=== PATIENT | male | born 1980 | race Caucasian/White ===

== ENCOUNTER 2017-05-04 11:06 | Emergency (ER) | payer OTHER ==
[~2017-05-04] VITALS: Ht 193 cm; Wt 105.0 kg
[~2017-05-04 11:06] MED LIST: CEPH500C3 PO; SULF1TAB47 PO; Z.0.NO CURRENT MEDS
[2017-05-04 11:09] VITALS: BP 126/76; PULSE 61; RESP 13; TEMP 98.4; O2SAT 100
[2017-05-04] MEDS ORDERED: CARD120T4 PO (11:49)
[2017-05-04 11:52] VITALS: BP 116/68; PULSE 62; RESP 18; O2SAT 99
--- NOTE | 2017-05-04 11:58 | PD ---
HPI Chief Complaint: Psychiatric Symptoms Time Seen by Provider: 11:42 Travel History International Travel<30 days: No Contact w/Intl Traveler<30days: No Traveled to known affect area: No History of Present Illness HPI 36yo M with PMH of afib on diltiazem was sent here from [facility] for medical clearance and psych evaluation. Pt was Mendiola Acted yesterday for depression and suicidal ideation and was brought to [facility] and stayed there over night. They said they cant help him because he has a cardiac condition which is rate controlled afib. Denies any fever, chest pain, sob, n/v , abdominal pain, focal weakness or numbness, trauma, IVDA, alcohol use. PFSH Past Medical History Autoimmune Disease: No Blood Disorders: No Bipolar Disorder: Yes Anxiety: Yes Depression: Yes Cancer: No Cardiovascular Problems: Yes (CHRONIC AFIB) High Cholesterol: No Chest Pain: No Diminished Hearing: No Endocrine: No Genitourinary: No Immune Disorder: No Musculoskeletal: No Neurologic: No Psychiatric: Yes Reproductive: No Respiratory: No Immunizations Current: Yes Tetanus Vaccination: < 5 Years Influenza Vaccination: No Past Surgical History Abdominal Surgery: No AICD: No Arteriovenous Shunt: No Cardiac Surgery: No Ear Surgery: No Endocrine Surgery: No Eye Surgery: No Genitourinary Surgery: No Gynecologic Surgery: No Insulin Pump: No Joint Replacement: No Oral Surgery: No Pacemaker: No Thoracic Surgery: No Social History Alcohol Use: Yes Tobacco Use: Yes (1PPD) Substance Use: Yes (MARIJUANA LAST USE A MONTH AGO , COCCAINE USE SOMETIMES ) Allergies-Medications (Allergen,Severity, Reaction): Coded Allergies: lithium (Unverified Allergy, Severe, IRREGULAR HEARTBEAT, 05/04/17) haloperidol (Unverified Allergy, Intermediate, TONGUE SPASM, 05/04/17) vancomycin (Unverified Allergy, Mild, SWOLLEN LIPS/MOUTH, 05/04/17) bupropion (Verified Allergy, Unknown, SEIZURE, 05/04/17) Reported Meds & Prescriptions Reported Meds & Active Scripts Active Reported Cardizem (Diltiazem HCl) 120 Mg Tab 120 Mg PO BID Review of Systems Except as stated in HPI: all other systems reviewed are Neg Physical Exam Narrative GENERAL: 36yo M not in distress. SKIN: Focused skin assessment warm/dry. HEAD: Atraumatic. Normocephalic. EYES: Pupils equal and round at 3mm bilaterally. EOMI. ENT: No nasal bleeding or discharge. Mucous membranes pink and moist. NECK: Trachea midline. No JVD. CARDIOVASCULAR: Regular rate and rhythm. No murmur appreciated. RESPIRATORY: No accessory muscle use. Clear to auscultation. Breath sounds equal bilaterally. GASTROINTESTINAL: Abdomen soft, non-tender, nondistended. MUSCULOSKELETAL: No obvious deformities. No clubbing. No cyanosis. No edema. NEUROLOGICAL: Awake and alert. No obvious cranial nerve deficits. Motor grossly within normal limits. Normal speech. Data Data Last Documented VS Vital Signs Date Time Temp Pulse Resp B/P (MAP) Pulse Ox O2 Delivery O2 Flow Rate FiO2 05/04/17 12:52 60 20 116/68 (84) 99 Room Air 05/04/17 11:09 98.4 Orders Orders Complete Blood Count With Diff (05/04/17 11:50) Basic Metabolic Panel (Bmp) (05/04/17 11:50) Electrocardiogram (05/04/17 11:50) Psych Screen (05/04/17 11:50) Drug Screen, Random Urine (05/04/17 11:50) Alcohol (Ethanol) (05/04/17 11:50) Salicylates (Aspirin) (05/04/17 11:50) Tylenol (Acetaminophen) (05/04/17 11:50) Diet Regular Basic (05/04/17 Lunch) Labs Laboratory Tests Test 05/04/17 12:05 05/04/17 12:25 White Blood Count 8.2 TH/MM3 Red Blood Count 4.96 MIL/MM3 Hemoglobin 15.6 GM/DL Hematocrit 46.1 % Mean Corpuscular Volume 93.0 FL Mean Corpuscular Hemoglobin 31.4 PG Mean Corpuscular Hemoglobin Concent 33.8 % Red Cell Distribution Width 14.4 % Platelet Count 281 TH/MM3 Mean Platelet Volume 8.9 FL Neutrophils (%) (Auto) 58.8 % Lymphocytes (%) (Auto) 26.3 % Monocytes (%) (Auto) 11.1 % Eosinophils (%) (Auto) 3.0 % Basophils (%) (Auto) 0.8 % Neutrophils # (Auto) 4.8 TH/MM3 Lymphocytes # (Auto) 2.2 TH/MM3 Monocytes # (Auto) 0.9 TH/MM3 Eosinophils # (Auto) 0.2 TH/MM3 Basophils # (Auto) 0.1 TH/MM3 CBC Comment DIFF FINAL Differential Comment Blood Urea Nitrogen 18 MG/DL Creatinine 1.08 MG/DL Random Glucose 90 MG/DL Calcium Level 8.4 MG/DL Sodium Level 137 MEQ/L Potassium Level 4.3 MEQ/L Chloride Level 107 MEQ/L Carbon Dioxide Level 27.4 MEQ/L Anion Gap 3 MEQ/L Estimat Glomerular Filtration Rate 77 ML/MIN Salicylates Level 3.3 MG/DL Acetaminophen Level LESS THAN 2.0 MCG/ML Ethyl Alcohol Level LESS THAN 3 MG/DL Urine Opiates Screen NEG Urine Barbiturates Screen NEG Urine Amphetamines Screen NEG Urine Benzodiazepines Screen POS Urine Cocaine Screen POS Urine Cannabinoids Screen NEG MDM Medical Decision Making Medical Screen Exam Complete: Yes Emergency Medical Condition: Yes Interpretation(s) EKG: NSR 62bpm. Normal axis. No ST segment elevation or depression. Differential Diagnosis Depression vs. bipolar disorder Narrative Course 36yo M under Mendiola Act for suicidal ideations. Pt has history of afib and on diltiazem and heart rate is controlled in the 60s. Has no medical complaints. EKG reviewed and pt is in sinus rhythm. Labs reviewed, no leukocytosis. BMP unremarkable. Alcohol, salicylate and acetaminophen low. Utox positive for benzodiazepine and cocaine. Pt is medically clear for psych evaluation. Diagnosis Primary Impression: Depression Qualified Codes: F32.9 - Major depressive disorder, single episode, unspecified Diana Styles DO May 04, 2017 11:58
[2017-05-04 12:18] LABS: AUTOMATED NEUTROPHIL # 4.8 TH/MM3 (1.8-7.7); BASOPHIL # 0.1 TH/MM3 (0-0.2); BASOPHIL % 0.8 % (0.0-2.0); EOSINOPHIL # 0.2 TH/MM3 (0-0.4); HEMATOCRIT 46.1 % (39.0-51.0); HEMO FLAGS DIFF FINAL; LYMPH % 26.3 % (9.0-44.0); LYMPHOCYTE # 2.2 TH/MM3 (1.0-4.8); MEAN CORPUSCULAR HEMOGLOBIN 31.4 PG (27.0-34.0); MEAN CORPUSCULAR HGB CONC 33.8 % (32.0-36.0); MONO % 11.1 % (0.0-8.0); NEUT % 58.8 % (16.0-70.0); PLATELET COUNT 281 TH/MM3 (150-450); RED BLOOD COUNT 4.96 MIL/MM3 (4.50-5.90); RED CELL DISTRIBUTION WIDTH 14.4 % (11.6-17.2); WHITE BLOOD COUNT 8.2 TH/MM3 (4.0-11.0)
[2017-05-04 12:41] LABS: ANION GAP 3 MEQ/L (5-15); BICARBONATE 27.4 MEQ/L (21.0-32.0); BLOOD UREA NITROGEN 18 MG/DL (7-18); CHLORIDE 107 MEQ/L (98-107); GLOMERULAR FILTRATION RATE 77 ML/MIN (>89); POTASSIUM 4.3 MEQ/L (3.5-5.1); SODIUM (NA) 137 MEQ/L (136-145)
[2017-05-04 12:46] LABS: ALCOHOL LESS THAN 3 MG/DL (0-5)
[2017-05-04 12:47] LABS: ACETAMINOPHEN LESS THAN 2.0 MCG/ML (10.0-30.0)
[2017-05-04 12:52] VITALS: BP 116/68; PULSE 60; RESP 20; O2SAT 99
--- NOTE | 2017-05-04 18:11 | PD ---
History of Present Illness Chief Complaint: Psychiatric Symptoms Time Seen by Provider: 17:55 Travel History International Travel<30 Days: No Contact w/Intl Traveler<30days: No Known affected area: No Legal Status Legal Status: Marlena Act Mendiola Act Signed By: Delilah Zamora History of Present Illness: History of Present Illness HPI 36 year old male with PMH of afib, history of schizoaffective disorder was sent here from [facility] for medical clearance and psych evaluation. Pt was Marlena Acted yesterday for depression and suicidal ideation and was brought to [facility] and stayed there over night. They said they cant help him because he has a cardiac condition which is rate controlled afib.EMR is reviewed. Has had a couple of visits to the emergency department for psychiatric evaluation the last one being in December 2012 in which she presented with depression with suicidal ideation and contracts of being homeless. Patient has been monitored in main ED and he has presented no behavioral concerns and no suicidality. He is alert, oriented, engaging and cooperative male, at times he does have inappropriate smiling but he is cognitively intact. There is no hallucinations , no delusions, no paranoia. He tells me that he has been out of Klonopin medication that he has taken for several years for 3 days. He also states that he went to [facility] outpatient clinic and was told that they could not prescribe that medication for him. He has not made an appointment with an outpatient psychiatrist because he is aware that he had smoked marijuana and was going to be drug tested at that appointment. Patient states" I figured if I said I was suicidal I could get Klonopin here in the emergency department.. I am not thinking about hurting myself I just want to go home and I will follow up with outpatient psychiatrist." Patient is not requesting inpatient admission and at this time does not meet criteria for inpatient psychiatric hospitalization. PFSH Past Medical History Autoimmune Disease: No Blood Disorders: No Bipolar Disorder: Yes Anxiety: Yes Depression: Yes Cancer: No Cardiovascular Problems: Yes (CHRONIC AFIB) High Cholesterol: No Chest Pain: No Diminished Hearing: No Endocrine: No Genitourinary: No Immune Disorder: No Musculoskeletal: No Neurologic: No Psychiatric: Yes Reproductive: No Respiratory: No Immunizations Current: Yes Tetanus Vaccination: < 5 Years Influenza Vaccination: No Past Surgical History Abdominal Surgery: No AICD: No Arteriovenous Shunt: No Cardiac Surgery: No Ear Surgery: No Endocrine Surgery: No Eye Surgery: No Genitourinary Surgery: No Gynecologic Surgery: No Insulin Pump: No Joint Replacement: No Oral Surgery: No Pacemaker: No Thoracic Surgery: No Psychiatric History Psychiatric History Hx Psychiatric Treatment: STATED HX OF BIPOLAR [facility] after being incarcerated. History of Inpatient Treatment: Yes Guns or firearms in home: No Social History Lives with mother, sister and nephew. On disability Hx Alcohol Use: Yes Hx Tobacco Use: Yes (1PPD) Hx Substance Use: Yes (MARIJUANA LAST USE A MONTH AGO , COCCAINE USE SOMETIMES ) Substance Use Type: Marijuana, Nicotine/Cigarettes Hx of Substance Use Treatment: Yes Family Psychiatric History Negative Allergies-Medications (Allergen,Severity, Reaction): Coded Allergies: lithium (Unverified Allergy, Severe, IRREGULAR HEARTBEAT, 05/04/17) haloperidol (Unverified Allergy, Intermediate, TONGUE SPASM, 05/04/17) vancomycin (Unverified Allergy, Mild, SWOLLEN LIPS/MOUTH, 05/04/17) bupropion (Verified Allergy, Unknown, SEIZURE, 05/04/17) Reported Meds & Prescriptions Reported Meds & Active Scripts Active Reported Cardizem (Diltiazem HCl) 120 Mg Tab 120 Mg PO BID Review of Systems Except as stated in HPI: all other systems reviewed are Neg Mental Status Examination Appearance: Appropriate Consciousness: Alert Orientation: x4 Motor Activity: Normal gait Speech: Unremarkable Language: Adequate Fund of Knowledge: Adequate Attention and Concentration: Adequate Memory: Unremarkable Mood: Appropriate Affect: Appropriate Thought Process & Associations: Intact Thought Content: Appropriate Hallucination Type: None Delusion Type: None Suicidal Ideation: No Suicidal Plan: No Suicidal Intention: No Homicidal Ideation: No Homicidal Plan: No Homicidal Intention: No Insight: Fair Judgment: Impulsive MDM Medical Decision Making Medical Record Reviewed: Yes Assessment/Plan 36-year-old male with history of schizoaffective disorder, previously treated with Klonopin, presents to the emergency department under a Mendiola act for alleged suicidal ideation. Patient states that he has been off Klonopin for 3 days and he figured that if he called the police and told them he was suicidal he would be brought to the emergency department and he would get a prescription for the Klonopin. Patient at this time is denying any suicidal or homicidal ideation and is requesting to be discharged. He has an appointment scheduled with outside psychiatrist Dr.Samario Vásquez. Patient states that he will go to that appointment to get his prescription for Klonopin. is cognitively intact. At this time does not be Mendiola act criteria. The Mendiola act will be lifted. Psychiatrically clear for discharge from ED. Orders Orders Complete Blood Count With Diff (05/04/17 11:50) Basic Metabolic Panel (Bmp) (05/04/17 11:50) Electrocardiogram (05/04/17 11:50) Psych Screen (05/04/17 11:50) Drug Screen, Random Urine (05/04/17 11:50) Alcohol (Ethanol) (05/04/17 11:50) Salicylates (Aspirin) (05/04/17 11:50) Tylenol (Acetaminophen) (05/04/17 11:50) Diet Regular Basic (05/04/17 Lunch) Diet Regular Basic (05/04/17 Dinner) Results Vital Signs Date Time Temp Pulse Resp B/P (MAP) Pulse Ox O2 Delivery O2 Flow Rate FiO2 05/04/17 12:52 60 20 116/68 (84) 99 Room Air 05/04/17 11:52 62 18 116/68 (84) 99 Room Air 05/04/17 11:09 98.4 61 13 126/76 (93) 100 Laboratory Tests Test 05/04/17 12:05 05/04/17 12:25 White Blood Count 8.2 Red Blood Count 4.96 Hemoglobin 15.6 Hematocrit 46.1 Mean Corpuscular Volume 93.0 Mean Corpuscular Hemoglobin 31.4 Mean Corpuscular Hemoglobin Concent 33.8 Red Cell Distribution Width 14.4 Platelet Count 281 Mean Platelet Volume 8.9 Neutrophils (%) (Auto) 58.8 Lymphocytes (%) (Auto) 26.3 Monocytes (%) (Auto) 11.1 Eosinophils (%) (Auto) 3.0 Basophils (%) (Auto) 0.8 Neutrophils # (Auto) 4.8 Lymphocytes # (Auto) 2.2 Monocytes # (Auto) 0.9 Eosinophils # (Auto) 0.2 Basophils # (Auto) 0.1 CBC Comment DIFF FINAL Differential Comment Blood Urea Nitrogen 18 Creatinine 1.08 Random Glucose 90 Calcium Level 8.4 Sodium Level 137 Potassium Level 4.3 Chloride Level 107 Carbon Dioxide Level 27.4 Anion Gap 3 Estimat Glomerular Filtration Rate 77 Salicylates Level 3.3 Acetaminophen Level LESS THAN 2.0 Ethyl Alcohol Level LESS THAN 3 Urine Opiates Screen NEG Urine Barbiturates Screen NEG Urine Amphetamines Screen NEG Urine Benzodiazepines Screen POS Urine Cocaine Screen POS Urine Cannabinoids Screen NEG Diagnosis Primary Impression: Schizoaffective disorder Psychiatrically Cleared: Yes Med/ Other Pt Specific Info: No Change to Meds Disposition: 01 DISCHARGE HOME Condition: Stable Problem Qualifiers Primary Impression: Schizoaffective disorder Qualified Codes: F25.0 - Schizoaffective disorder, bipolar type Toña Torres May 04, 2017 18:11
--- NOTE | 2017-05-04 18:28 | PD ---
Physical Exam Date Seen by Provider: May 04, 2017 Time Seen by Provider: 18:25 Data Data Last Documented VS Vital Signs Date Time Temp Pulse Resp B/P (MAP) Pulse Ox O2 Delivery O2 Flow Rate FiO2 05/04/17 12:52 60 20 116/68 (84) 99 Room Air 05/04/17 11:09 98.4 Orders Orders Complete Blood Count With Diff (05/04/17 11:50) Basic Metabolic Panel (Bmp) (05/04/17 11:50) Electrocardiogram (05/04/17 11:50) Psych Screen (05/04/17 11:50) Drug Screen, Random Urine (05/04/17 11:50) Alcohol (Ethanol) (05/04/17 11:50) Salicylates (Aspirin) (05/04/17 11:50) Tylenol (Acetaminophen) (05/04/17 11:50) Diet Regular Basic (05/04/17 Lunch) Diet Regular Basic (05/04/17 Dinner) Labs Laboratory Tests Test 05/04/17 12:05 05/04/17 12:25 White Blood Count 8.2 TH/MM3 Red Blood Count 4.96 MIL/MM3 Hemoglobin 15.6 GM/DL Hematocrit 46.1 % Mean Corpuscular Volume 93.0 FL Mean Corpuscular Hemoglobin 31.4 PG Mean Corpuscular Hemoglobin Concent 33.8 % Red Cell Distribution Width 14.4 % Platelet Count 281 TH/MM3 Mean Platelet Volume 8.9 FL Neutrophils (%) (Auto) 58.8 % Lymphocytes (%) (Auto) 26.3 % Monocytes (%) (Auto) 11.1 % Eosinophils (%) (Auto) 3.0 % Basophils (%) (Auto) 0.8 % Neutrophils # (Auto) 4.8 TH/MM3 Lymphocytes # (Auto) 2.2 TH/MM3 Monocytes # (Auto) 0.9 TH/MM3 Eosinophils # (Auto) 0.2 TH/MM3 Basophils # (Auto) 0.1 TH/MM3 CBC Comment DIFF FINAL Differential Comment Blood Urea Nitrogen 18 MG/DL Creatinine 1.08 MG/DL Random Glucose 90 MG/DL Calcium Level 8.4 MG/DL Sodium Level 137 MEQ/L Potassium Level 4.3 MEQ/L Chloride Level 107 MEQ/L Carbon Dioxide Level 27.4 MEQ/L Anion Gap 3 MEQ/L Estimat Glomerular Filtration Rate 77 ML/MIN Salicylates Level 3.3 MG/DL Acetaminophen Level LESS THAN 2.0 MCG/ML Ethyl Alcohol Level LESS THAN 3 MG/DL Urine Opiates Screen NEG Urine Barbiturates Screen NEG Urine Amphetamines Screen NEG Urine Benzodiazepines Screen POS Urine Cocaine Screen POS Urine Cannabinoids Screen NEG MDM Medical Record Reviewed: Yes Supervised Visit with AMAN: No Narrative Course 36-year-old male presented earlier today as a Mendiola act for suicidal ideation. Patient states he went to [facility] to receive his clonidine. He stated there 1 night but then they sent him to the emergency room as they are not equipped to handle his "heart condition." Patient has history of A. fib but is currently in sinus rhythm with a rate in the 60s. He denies any medical complaints. He was medically cleared by previous physician. Patient was seen by the psychiatric nurse practitioner in his Mendiola act was lifted. She does not feel that he is a threat to himself or others at this time. Patient is calling people to get a ride home. He is calm, cooperative, but would like to leave. Denies suicidal or homicidal ideation. He is stable for discharge and outpatient follow-up per psych. Diagnosis Primary Impression: Depression Qualified Codes: F32.9 - Major depressive disorder, single episode, unspecified Additional Impression: Schizoaffective disorder Referrals: Psychiatrist Additional Instruction: Follow up per psychiatrist's recommendations. Disposition: 01 DISCHARGE HOME Condition: Stable Linda Roberson May 04, 2017 18:27
[2017-05-04 18:46] VITALS: BP 129/68; PULSE 65; RESP 18; O2SAT 99
--- NOTE | 2017-05-05 09:35 | EKG ---
Date Performed: 05/04/2017 Time Performed: 12:48:23 PTAGE: 36 years EKG: Sinus rhythm WITH SINUS ARRHYTHMIA POSSIBLE LEFT ATRIAL ENLARGEMENT Compared to previous tracing, sinus rhythm weeks s replaced atrial fibrillation BORDERLINE ECG PREVIOUS TRACING : 01/10/2013 00.30 DOCTOR: Ismael Aviles Interpretating Date/Time 05/05/2017 09:33:51
== END 2017-05-04 19:05 | disposition home or self-care (01) ==
LOC: NEPD 11:06
DX: F25.1 Schizoaffective disorder, depressive type (principal); I48.2 Chronic atrial fibrillation
CPT/HCPCS: 80048; 80307; 85025; 93005; 99284

== ENCOUNTER 2017-05-09 15:56 | Inpatient (IN) | payer OTHER ==
[~2017-05-09] VITALS: Ht 188 cm; Wt 98.0 kg
[~2017-05-09 15:56] MED LIST changes: +CARD120T4 PO; -CEPH500C3 PO; -SULF1TAB47 PO; -Z.0.NO CURRENT MEDS
[2017-05-09] MEDS ORDERED: LORazepam 2 MG/ML VIAL IM PRN (21:30)
[2017-05-09] MEDS ORDERED: clonazePAM 1 MG TAB PO ONE (21:30)
[2017-05-09] MEDS ORDERED: ALUMINUM/MAGNESIUM/SIMETH 30 ML CUP PO PRN (21:30)
[2017-05-09] MEDS ORDERED: MAGNESIUM HYDROXIDE SUSP 30 ML CUP PO PRN (21:30)
[2017-05-09] MEDS: LORazepam 1 MG TAB PO PRN (22:20)
[2017-05-09 22:31] VITALS: BP 142/99; PULSE 63; RESP 20; TEMP 97.7; O2SAT 99
[2017-05-10 05:38] VITALS: BP 114/75; PULSE 74; RESP 18; TEMP 97.3; O2SAT 100
[2017-05-10 07:44] LABS: ANION GAP 7 MEQ/L (5-15); BICARBONATE 27.1 MEQ/L (21.0-32.0); BLOOD UREA NITROGEN 14 MG/DL (7-18); CHLORIDE 105 MEQ/L (98-107); GLOMERULAR FILTRATION RATE 80 ML/MIN (>89); POTASSIUM 3.7 MEQ/L (3.5-5.1); SODIUM (NA) 139 MEQ/L (136-145)
[2017-05-10 07:48] LABS: HDL CHOLESTEROL 45.4 MG/DL (40.0-60.0); LDL CHOLESTEROL 53 MG/DL (0-99)
[2017-05-10] MEDS: NICOTINE 21 MG/24 HR PATCH T-DERMAL SCH (07:57)
[2017-05-10] MEDS ORDERED: clonazePAM 1 MG TAB PO SCH (09:00)
[2017-05-10 10:55] LABS: HEMOGLOBIN A1a 1.1 %; HEMOGLOBIN A1b 0.8 %; HEMOGLOBIN Ao 86.5 %; HEMOGLOBIN F 0.9 %; HEMOGLOBIN LA1C 1.9 %; HEMOGLOBIN P3 3.4 %
[2017-05-10] MEDS: LORazepam 1 MG TAB PO PRN ×2 (11:13→21:20)
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
[2017-05-10] MEDS ORDERED: DILTIAZEM HCL 60 MG TAB PO SCH (14:15)
[2017-05-10] MEDS ORDERED: OLANZapine IM 10 MG VIAL IM PRN ×2 (15:00→15:45)
[2017-05-10] MEDS ORDERED: OLANZapine 5 MG TAB PO SCH (15:00)
[2017-05-10] MEDS: ASPIRIN EC 81 MG TABEC PO SCH (16:30)
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
[2017-05-10] MEDS: clonazePAM 1 MG TAB PO SCH (16:57)
[2017-05-10 17:13] VITALS: BP 117/75; PULSE 78; RESP 18; TEMP 98.1; O2SAT 99
[2017-05-10] MEDS ORDERED: DILT60TA33 PO (18:44)
[2017-05-10] MEDS ORDERED: ECASA81 PO (18:44)
[2017-05-10 19:59] LABS: INDIRECT BILIRUBIN 0.3 MG/DL (0.0-0.8); TOTAL BILIRUBIN ADULT 0.4 MG/DL (0.2-1.0)
[2017-05-10 20:00] LABS: AUTOMATED NEUTROPHIL # 4.4 TH/MM3 (1.8-7.7); BASOPHIL # 0.1 TH/MM3 (0-0.2); BASOPHIL % 0.9 % (0.0-2.0); EOSINOPHIL # 0.3 TH/MM3 (0-0.4); EOSINOPHIL % 3.9 % (0.0-4.0); HEMATOCRIT 41.2 % (39.0-51.0); HEMO FLAGS DIFF FINAL; LYMPH % 36.7 % (9.0-44.0); LYMPHOCYTE # 3.3 TH/MM3 (1.0-4.8); MEAN CELL VOLUME 91.4 FL (80.0-100.0); MEAN CORPUSCULAR HEMOGLOBIN 31.7 PG (27.0-34.0); MEAN CORPUSCULAR HGB CONC 34.7 % (32.0-36.0); MONO % 9.7 % (0.0-8.0); NEUT % 48.8 % (16.0-70.0); PLATELET COUNT 242 TH/MM3 (150-450); RED BLOOD COUNT 4.51 MIL/MM3 (4.50-5.90); RED CELL DISTRIBUTION WIDTH 14.4 % (11.6-17.2); WHITE BLOOD COUNT 8.9 TH/MM3 (4.0-11.0)
[2017-05-10] MEDS ORDERED: OLANZapine 10 MG TAB PO SCH (21:00)
[2017-05-10] MEDS: REMOVE OLD NICOTINE PATCH T-DERMAL SCH (21:00)
[2017-05-11 06:14] VITALS: BP 115/61; PULSE 52; RESP 18; TEMP 97.9; O2SAT 98
[2017-05-11] MEDS: ASPIRIN EC 81 MG TABEC PO SCH (08:28)
[2017-05-11] MEDS: DILTIAZEM HCL 60 MG TAB PO SCH (08:28)
[2017-05-11] MEDS: clonazePAM 1 MG TAB PO SCH ×3 (08:28→16:28)
[2017-05-11] MEDS: NICOTINE 21 MG/24 HR PATCH T-DERMAL SCH (08:29)
[2017-05-11] MEDS: OLANZapine 10 MG TAB PO SCH ×2 (08:29→20:08)
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
--- NOTE | 2017-05-11 14:51 | HHI.PYPN ---
Subjective Remarks Patient seen follow, chart review. Discussion with nursing staff reported patient has been compliant with medications as a noted to be out of the room but over the evening patient was talking about Secret Service and aliens. He was seen for interview along with Dr. Ortega, nurse and behavioral tech which patient was noted to be calm initially but then became agitated when asking about his delusions and hallucinations. Patient stated that he is feeling well and that the medications are making her feel "slow down" but agrees to continue taking treatment. Patient requests to be discharged stating he is tired of being "in a box". When patient was asked about auditory hallucinations of Secret Service her "feel agents" speaking to him as he mentioned yesterday patient states yelling "I am to retail field representative" and began to expound on how he is connected with aliens and argued annihilated this planet. Patient goes on to be verbally agitated threatening toward mortgage or loan underwriter. After interview was concluded patient continues to be yelling in his room for some time. Mental Status Examination Appearance: Appropriate Consciousness: Vigilant Orientation: Person Motor Activity: Normal gait Speech: Other (loud and yelling) Language: Perseveration (discharge) Fund of Knowledge: Inadequate Attention and Concentration: Inadequate Memory: Impaired Mood: Angry Affect: Irritable, Other (agitated toward and of interview) Thought Process & Associations: Loose associations, Disorganized Thought Content: Bizarre thinking, Hallucinations, Delusional Hallucination Type: Auditory Delusion Type: Bizarre, Paranoid, Other (persecutory) Suicidal Ideation: No Suicidal Plan: No Suicidal Intention: No Homicidal Ideation: Yes Homicidal Plan: No Homicidal Intention: Yes Insight: Poor Judgment: Poor Results Labs Test 05/10/17 19:49 White Blood Count 8.9 TH/MM3 Red Blood Count 4.51 MIL/MM3 Hemoglobin 14.3 GM/DL Hematocrit 41.2 % Mean Corpuscular Volume 91.4 FL Mean Corpuscular Hemoglobin 31.7 PG Mean Corpuscular Hemoglobin Concent 34.7 % Red Cell Distribution Width 14.4 % Platelet Count 242 TH/MM3 Mean Platelet Volume 8.6 FL Neutrophils (%) (Auto) 48.8 % Lymphocytes (%) (Auto) 36.7 % Monocytes (%) (Auto) 9.7 % Eosinophils (%) (Auto) 3.9 % Basophils (%) (Auto) 0.9 % Neutrophils # (Auto) 4.4 TH/MM3 Lymphocytes # (Auto) 3.3 TH/MM3 Monocytes # (Auto) 0.9 TH/MM3 Eosinophils # (Auto) 0.3 TH/MM3 Basophils # (Auto) 0.1 TH/MM3 CBC Comment DIFF FINAL Differential Comment Vitals/IOs Vital Signs Date Time Temp Pulse Resp B/P (MAP) Pulse Ox O2 Delivery O2 Flow Rate FiO2 05/11/17 06:14 97.9 52 18 115/61 (79) 98 Assessment & Plan Problem List: (1) Schizoaffective disorder ICD Codes: F25.9 - Schizoaffective disorder, unspecified Status: Acute Assessment & Plan Patient continued to be grossly psychotic, endorsing bizarre paranoid delusions , noted to have poor it was control and that to be verbally threatening toward mortgage or loan underwriter during interview. We'll continue olanzapine 10 mg by mouth twice a day, we'll add fluphenazine 5 mg a.m. 5 mg in the afternoon as an adjunct for psychosis. We'll continue clonazepam 0.5 mg by mouth. 3 times a day. Recent laboratory work reported LFT slightly elevated. We'll continue to monitor LFTs throughout care. Healthcare surrogate and guardian advocate documents have been completed requesting that his healthcare surrogate be his mother. Patient agreed to give consent for treatment team to come indicate with mother about his care. Continue assaultive precautions. Continue to monitor mood and behavior. Discharge planning in progress Justification for Cont. Inpt. At risk for further decompensation if at lower level of care Discharge Planning Unclear with the patient may return back to mother's residence once psychiatrically cleared Emiliano Townsend MD May 11, 2017 14:51
[2017-05-11] MEDS ORDERED: fluPHENAZine HCL 25 MG/10 ML VIAL IM SCH (16:00)
[2017-05-11 16:40] VITALS: BP 109/64; PULSE 80; RESP 18; TEMP 98.3; O2SAT 97
[2017-05-11] MEDS: ACETAMINOPHEN 325 MG TAB PO PRN ×3 (20:11→23:06)
[2017-05-11] MEDS: REMOVE OLD NICOTINE PATCH T-DERMAL SCH (20:12)
[2017-05-12 05:43] VITALS: BP 121/80; PULSE 63; RESP 18; TEMP 98; O2SAT 99
[2017-05-12] MEDS: clonazePAM 1 MG TAB PO SCH ×3 (08:39→16:46)
[2017-05-12] MEDS: ASPIRIN EC 81 MG TABEC PO SCH (08:39)
[2017-05-12] MEDS: OLANZapine 10 MG TAB PO SCH ×2 (08:40→20:49)
[2017-05-12] MEDS: DILTIAZEM HCL 60 MG TAB PO SCH (08:40)
[2017-05-12] MEDS: NICOTINE 21 MG/24 HR PATCH T-DERMAL SCH (08:46)
[2017-05-12] MEDS: ACETAMINOPHEN 325 MG TAB PO PRN (10:33)
[2017-05-12] MEDS: LORazepam 1 MG TAB PO PRN ×2 (10:58→23:20)
--- NOTE | 2017-05-12 13:54 | HHI.PYPN ---
Subjective Remarks Patient was seen and case discussed with nursing. Patient seen with tach given his aggression the past couple of days. Today patient is guarded, hyperverbal with an intense stare. He is perseverant on discharge. He minimizes his history of psychosis. There is an underlying agitation it is visible during the interview. He has not had any outbursts. Likely responding to internal stimuli Mental Status Examination Appearance: Appropriate Consciousness: Vigilant Orientation: Person Motor Activity: Normal gait Speech: Other (loud and yelling) Language: Perseveration (discharge) Fund of Knowledge: Inadequate Attention and Concentration: Inadequate Memory: Impaired Mood: Angry, Oppositional Affect: Irritable, Other (agitated toward and of interview) Thought Process & Associations: Loose associations, Disorganized Thought Content: Bizarre thinking, Hallucinations, Delusional Hallucination Type: Auditory (guarded would not admit) Delusion Type: Bizarre, Paranoid, Other (persecutory) Suicidal Ideation: No Suicidal Plan: No Suicidal Intention: No Homicidal Ideation: Yes Homicidal Plan: No Homicidal Intention: Yes Insight: Poor Judgment: Poor Results Vitals/IOs Vital Signs Date Time Temp Pulse Resp B/P (MAP) Pulse Ox O2 Delivery O2 Flow Rate FiO2 05/12/17 05:43 98.0 63 18 121/80 (94) 99 Assessment & Plan Problem List: (1) Schizoaffective disorder ICD Codes: F25.9 - Schizoaffective disorder, unspecified Status: Acute Assessment & Plan Continue current treatment plan Justification for Cont. Inpt. Patient will decompensate in a less restrictive setting Oliver Trivedi DO May 12, 2017 13:54
[2017-05-12] MEDS: REMOVE OLD NICOTINE PATCH T-DERMAL SCH (20:49)
[2017-05-13 05:49] VITALS: BP 110/49; PULSE 55; RESP 16; TEMP 97.5; O2SAT 99
[2017-05-13] MEDS: DILTIAZEM HCL 60 MG TAB PO SCH (08:45)
[2017-05-13] MEDS: ASPIRIN EC 81 MG TABEC PO SCH (08:45)
[2017-05-13] MEDS: OLANZapine 10 MG TAB PO SCH ×2 (08:45→21:20)
[2017-05-13] MEDS: clonazePAM 1 MG TAB PO SCH ×3 (08:45→17:09)
[2017-05-13] MEDS: NICOTINE 21 MG/24 HR PATCH T-DERMAL SCH (08:47)
--- NOTE | 2017-05-13 14:30 | HHI.PYPN ---
Subjective Remarks Patient was seen and case discussed with nursing. Patient remains guarded and hypoverbal. Remains paranoid and perseverative about was written on this chart concerning his psychosis. Continues to say that he never had psychosis" other people just said that about me." Remains with an intense look and flat affect. Has not had any aggressive behaviors today or yesterday. Is focused on discharge. Tolerating medications well Mental Status Examination Appearance: Appropriate Consciousness: Vigilant Orientation: Person Motor Activity: Normal gait Speech: Other (loud and yelling) Language: Perseveration (discharge) Fund of Knowledge: Inadequate Attention and Concentration: Adequate Memory: Impaired Mood: Oppositional, Irritable Affect: Irritable, Other (agitated toward and of interview) Thought Process & Associations: Loose associations, Disorganized Thought Content: Bizarre thinking, Delusional Delusion Type: Bizarre, Paranoid, Other (persecutory) Suicidal Ideation: No Suicidal Plan: No Suicidal Intention: No Homicidal Ideation: Yes Homicidal Plan: No Homicidal Intention: Yes Insight: Poor Judgment: Poor Results Vitals/IOs Vital Signs Date Time Temp Pulse Resp B/P (MAP) Pulse Ox O2 Delivery O2 Flow Rate FiO2 05/13/17 05:49 97.5 55 16 110/49 (69) 99 Assessment & Plan Problem List: (1) Schizoaffective disorder ICD Codes: F25.9 - Schizoaffective disorder, unspecified Status: Acute Assessment & Plan Continue current treatment plan Justification for Cont. Inpt. Patient would decompensate in a less restrictive setting Oliver Trivedi DO May 13, 2017 14:29
[2017-05-13] MEDS: ACETAMINOPHEN 325 MG TAB PO PRN (15:24)
[2017-05-13 17:09] VITALS: BP 127/60; PULSE 77; RESP 17; TEMP 98.2; O2SAT 98
[2017-05-13] MEDS: REMOVE OLD NICOTINE PATCH T-DERMAL SCH (21:00)
[2017-05-14 05:53] VITALS: BP 109/68; PULSE 65; RESP 16; TEMP 97.3; O2SAT 98
[2017-05-14] MEDS: NICOTINE 21 MG/24 HR PATCH T-DERMAL SCH ×2 (08:38→08:42)
[2017-05-14] MEDS: ASPIRIN EC 81 MG TABEC PO SCH (08:38)
[2017-05-14] MEDS: OLANZapine 10 MG TAB PO SCH ×2 (08:38→20:19)
[2017-05-14] MEDS: clonazePAM 1 MG TAB PO SCH ×3 (08:38→17:05)
[2017-05-14] MEDS: DILTIAZEM HCL 60 MG TAB PO SCH (08:43)
--- NOTE | 2017-05-14 12:44 | HHI.PYPN ---
Subjective Remarks Patient seen for follow up; chart reviewed. Discussion with nursing staff reported that the patient continued with delusions of aliens which he endorsed last night but has not had any aggression or agitation nor yelling on the unit. Patient was found in the room sitting and was able to cooperative interview with singer songwriter and nurse. Patient states that his weekend was "long" and referred to be home to spend time with his family. Patient states that he spoke with his sister and mother over the phone which she states feels that he is ready to come back. Patient reports sleeping well, reports feeling "fine" denying any adverse drug reactions to current treatment. When asked about auditory hallucinations patient states "long time ago"despite having had endorsed auditory hallucinations initially during his first day of admission. Patient was resistant to expound on his belief of his involvement with extraterrestrials and simply showed singer songwriter attempted to on his leg of what he calls a constellation. Patient denies SI, HI, or any perceptual disturbances at this time. Collateral information: Maria Eugenia Pricne (mother) - was contacted at and states that she had been speaking with the patient over the phone since admission and initially was noted patient to be loud and delusional initially but for the past 2 days she states he has not been loud and feels that he is close to back to himself. She states that patient has not had any physical aggression since over a year and does not have any concerns for her safety at this time. She reports that patient initially came to the hospital after he was endorsing to his mother of auditory hallucinations to cut himself which he called 911 for assistance to be brought to the hospital for treatment. Mother states that she will speak with him again later this evening and will relay her assessment of how she feels he is doing with treatment team tomorrow. Review of Systems Except as stated in HPI: all other systems reviewed are Neg Mental Status Examination Appearance: Appropriate Consciousness: Vigilant Orientation: Person Motor Activity: Normal gait Speech: Unremarkable, Other Language: Perseveration (discharge) Fund of Knowledge: Inadequate Attention and Concentration: Adequate Memory: Impaired Mood: Irritable (less so today) Affect: Irritable (less so today) Thought Process & Associations: Goal directed, Linear Thought Content: Bizarre thinking, Delusional Hallucination Type: Auditory (denies today) Delusion Type: Bizarre, Paranoid, Other (persecutory) Suicidal Ideation: No Suicidal Plan: No Suicidal Intention: No Homicidal Ideation: No Homicidal Plan: No Homicidal Intention: No Insight: Poor Judgment: Poor Results Vitals/IOs Vital Signs Date Time Temp Pulse Resp B/P (MAP) Pulse Ox O2 Delivery O2 Flow Rate FiO2 05/14/17 05:53 97.3 65 16 109/68 (82) 98 Assessment & Plan Problem List: (1) Schizoaffective disorder ICD Codes: F25.9 - Schizoaffective disorder, unspecified Status: Acute Assessment & Plan Patient at this time. Responding to current treatment although continues to have delusions of his involvement with aliens but is less focused on them and noted to be reluctant to expand on this today. Patient with no behavioral disturbances, agitation or aggression recently. He has been compliant with treatment up to now. We'll continue olanzapine 10 mg by mouth twice a day, continue fluphenazine with increase of 5 mg by mouth a.m. and 10 mg by mouth p.m. for psychosis. Collateral today from patient's mother and waswith patient' s mother tomorrow morning to assess whether she feels patient is back at baseline prior for consideration for discharge. Continue to monitor mood and behavior, continue recommendations as per primary medical team. Discharge planning in progress Justification for Cont. Inpt. At risk for further decompensation at a lower level care Discharge Planning Patient returned back to mother residence once psychiatrically stable. Emiliano Townsend MD May 14, 2017 12:44
[2017-05-14] MEDS: fluPHENAZine HCL 25 MG/10 ML VIAL IM SCH (16:00)
[2017-05-14 18:21] VITALS: BP 118/67; PULSE 70; RESP 16; TEMP 97.3; O2SAT 98
[2017-05-14] MEDS: REMOVE OLD NICOTINE PATCH T-DERMAL SCH (20:19)
[2017-05-15 05:34] VITALS: BP 112/75; PULSE 76; RESP 18; TEMP 97.1; O2SAT 99
[2017-05-15 05:37] VITALS: BP 112/75; PULSE 76; RESP 18; TEMP 97.1; O2SAT 99
--- NOTE | 2017-05-15 07:33 | PD.TTN ---
Patient Problems 1. Discharge planning 2. Medication compliance 3. Knowledge deficit 4. Lack of coping skills Progress Toward Goals Provider Present: Dr. Juan J Townsend Provider Input: Pt remains delusional, grandiose, unpredictable, easily agitated and his medication regiment is being adjusted. Nurse(s) Present: Mya Wan RN Nurse(s) Input: Pt appears bizarre, discharge focused, delusional, focused on aliens and medication compliant. Psychiatric Counselors Present: KELTON Sweeney Psych Therapist Input: Pt appears anxious, repetitive, discharge focused, delusional, appropriate and organized. Pt presents with limited insight into condition and need for care. Pt presents with limited coping and emotional regulation skills at this time. He is compliant with medication regiment and denies symptoms. Group Spec/RT/OT/MALIK Present: Jose Vargas OT Group Spec/RT/OT/MALIK Input: Pt attends groups occassionally. Discharge Plan SMA Pt will be discharged home with family and will be provided outpatient psychiatric services. Documentation Scribe: KELTON Sweeney Jonathan LMHC May 15, 2017 07:33
[2017-05-15] MEDS: NICOTINE 21 MG/24 HR PATCH T-DERMAL SCH (08:40)
[2017-05-15] MEDS: ASPIRIN EC 81 MG TABEC PO SCH (08:41)
[2017-05-15] MEDS: clonazePAM 1 MG TAB PO SCH (08:41)
[2017-05-15] MEDS: OLANZapine 10 MG TAB PO SCH (08:41)
[2017-05-15] MEDS: fluPHENAZine HCL 25 MG/10 ML VIAL IM SCH (08:42)
[2017-05-15] MEDS: DILTIAZEM HCL 60 MG TAB PO SCH (08:43)
[2017-05-15] MEDS ORDERED: fluPHENAZine HCL 25 MG/10 ML VIAL IM SCH (09:00)
[2017-05-15] MEDS ORDERED: FLUP10TA PO (10:18)
[2017-05-15] MEDS ORDERED: FLUP5TAB PO (10:18)
[2017-05-15] MEDS ORDERED: OLAN10TA PO (10:18)
[2017-05-15] MEDS ORDERED: CLON1 PO (10:18)
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
== END 2017-05-15 13:05 | disposition home or self-care (01) | DRG 885 ==
LOC: H270 20:50
PROVIDERS: ADMIT Student in an Organized Health Care Education/Training Program; ATTEND Student in an Organized Health Care Education/Training Program
DX: F25.9 Schizoaffective disorder, unspecified (principal); R45.851 Suicidal ideations; I48.2 Chronic atrial fibrillation; R45.850 Homicidal ideations; F22 Delusional disorders; F32.9 Major depressive disorder, single episode, unspecified; F41.9 Anxiety disorder, unspecified; F12.90 Cannabis use, unspecified, uncomplicated; F14.90 Cocaine use, unspecified, uncomplicated; F17.210 Nicotine dependence, cigarettes, uncomplicated; Z79.82 Long term (current) use of aspirin; Z91.19 Patient's noncompliance with other medical treatment and regimen; Z59.0 Homelessness
CPT/HCPCS: 80048; 80061; 80076; 83036; 84443; 85025; J2060